=== PATIENT | male | born 1945 | race Caucasian/White ===

== ENCOUNTER 2018-08-13 20:05 | Inpatient (IN) | payer OTHER ==
[~2018-08-13] VITALS: Ht 180.3 cm; Wt 114.1 kg
[2018-08-13 20:08] VITALS: BP 144/82
[2018-08-13] MEDS ORDERED: METFORMIN HCL500 MG PO (20:15)
[2018-08-13] MEDS ORDERED: AMARYL4 MG PO (20:15)
[2018-08-13] MEDS ORDERED: COZAAR 25 MG TA25 M1 PO (20:15)
[2018-08-13] MEDS ORDERED: ASPIRIN325 PO (20:16)
[2018-08-13] MEDS ORDERED: HYDROCHLOROTHIA25 M2 PO (20:17)
[2018-08-13] MEDS ORDERED: COREG6.25 MG PO (20:18)
[2018-08-13] MEDS ORDERED: CENTRUM SILVER1 EAC2 PO (20:18)
[2018-08-13] MEDS ORDERED: MAXZIDE-25 MG1 EACH PO (20:22)
[2018-08-13] MEDS ORDERED: ZOCOR40 MG PO (20:23)
[2018-08-13 20:26] LABS: ABSOLUTE NEUTROPHILS 12.3 thou/uL (1.4-8.2); BASOPHILS 1.1 % (0.0-2.0); EOSINOPHILS 1.6 % (0.0-3.0); HEMATOCRIT 35.2 % (42.0-52.0); HEMOGLOBIN 12.4 gm/dL (14.0-18.0); LYMPHOCYTES 5.4 % (24.0-44.0); MCH 30.7 pg (26.0-34.0); MCHC 35.3 g/dL (28.0-37.0); MCV 86.9 fL (80.0-100.0); MONOCYTES 7.8 % (1.0-8.0); PLATELET COUNT 165 thou/uL (150-400); POLYS 84.1 % (36.0-66.0); RBC 4.05 mil/uL (4.50-6.00); RDW 13.4 % (10.5-14.5); WBC 14.6 thou/uL (4.0-11.0)
[2018-08-13 20:42] LABS: ANION GAP 12 mmol/L (7-16); BUN 15 mg/dL (7-18); CALCIUM 8.7 mg/dL (8.5-10.1); CHLORIDE 95 mmol/L (98-107); CO2 23 mmol/L (21-32); CREATININE 1.4 mg/dL (0.7-1.3); GLUCOSE 267 mg/dL (74-106); POTASSIUM 4.1 mmol/L (3.5-5.1); SODIUM 130 mmol/L (136-145)
[2018-08-13 20:46] LABS: ALBUMIN 3.7 g/dL (3.4-5.0); SGOT 26 U/L (15-37); SGPT 33 U/L (30-65); TOTAL BILIRUBIN 1.1 mg/dL (<0.1-1.0); TOTAL PROTEIN 7.3 g/dL (6.4-8.2); TROPONIN-I <0.06 ng/mL (<0.06)
[2018-08-13 21:10] LABS: URINE BILIRUBIN NEGATIVE (Negative); URINE BLOOD TRACE (Negative); URINE CLARITY CLEAR; URINE COLOR YELLOW; URINE GLUCOSE-RANDOM* TRACE (Negative); URINE KETONES TRACE (Negative); URINE LEUKOCYTES-REFLEX NEGATIVE (Negative); URINE NITRITE-REFLEX NEGATIVE (Negative); URINE PROTEIN (DIPSTICK) TRACE (Negative); URINE UROBILINOGEN 0.2 E.U./dl (0.2-1.0)
[2018-08-14 01:30] VITALS: BP 102/74
[2018-08-14 01:49] VITALS: BP 102/74
[2018-08-14 02:15] VITALS: BP 165/70
--- NOTE | 2018-08-14 04:30 | NUR ---
PT ADMISSION COMPLETED. CONSENTS SIGNED. ORDERS IMPLEMENTED. PT ALERT AND ORIENTED. FALL RISK PRECAUTIONS IN PLACE. IV DRESSING C/D/I, NO SIGNS OF INFILTRATRION. PT CALL LIGHT AND PERSONAL BELNONGS WITHIN REACH. WILL CONTINUE POC UNTIL EOS.
[2018-08-14 06:08] LABS: CALCIUM 8.2 mg/dL (8.5-10.1); CREATININE 1.3 mg/dL (0.7-1.3); MAGNESIUM 1.7 mg/dL (1.8-2.4); POTASSIUM 3.7 mmol/L (3.5-5.1)
[2018-08-14 07:15] VITALS: BP 156/59
--- NOTE | 2018-08-14 08:58 | NUR ---
ASSUMED CARE OF PT AT 0700. ASSESSMENT COMPLETED. A&O,X4. C/O WEAKNESS AND COUGH. DENIES PAIN AND N/V/D. QUESTIONED WHY HE WAS NOT RESTARTED ON HIS METFORMIN, PHYSICIAN NOTIFIED. INSTRUCTED TO HOLD FOR AM. STANDBY ASSIST TO BATHROOM. WILL CONTINUE TO MONITOR.
[2018-08-14 17:18] VITALS: BP 154/80
[2018-08-14 19:56] VITALS: BP 162/73
[2018-08-15 04:19] VITALS: BP 166/80
[2018-08-15 04:58] LABS: HEMATOCRIT 31.8 % (42.0-52.0); HEMOGLOBIN 11.3 gm/dL (14.0-18.0); MCH 30.6 pg (26.0-34.0); MCHC 35.4 g/dL (28.0-37.0); MCV 86.5 fL (80.0-100.0); RBC 3.68 mil/uL (4.50-6.00); RDW 13.5 % (10.5-14.5); WBC 8.7 thou/uL (4.0-11.0)
[2018-08-15 05:08] LABS: CALCIUM 8.5 mg/dL (8.5-10.1); CREATININE 1.2 mg/dL (0.7-1.3); MAGNESIUM 1.6 mg/dL (1.8-2.4); POTASSIUM 3.7 mmol/L (3.5-5.1)
--- NOTE | 2018-08-15 06:40 | NUR ---
A/O, afebrile. BP elevated this AM , denied headache. BP medication given. Patient refused insulin. The staff called the WOODYARD OPERATOR, explained to the patient the reason why he could not have metformin.
--- NOTE | 2018-08-15 08:11 | EKG ---
[address] [address] ELECTROCARDIOGRAM REPORT Name: KARINA LOPEZ Room #: 423-1 ADM IN M.R.#: [id number] ������������������ Admission: 08/14/18 ������������������ Attend Phys: Yuni Amador MD Discharge: ������������������ Date of : 47 Report #: [id number] ����������������������������������������������������������������� [id number] THIS REPORT FOR: //name// [facility] ED Test Date: 2018-08-13 Test Time: 20:11:44 Pat Name: KARINA LOPEZ Department: Room: [facility] Gender: M Pt Skilled: SHAYLEE : 1945 Requested By: Brendan Justin Order Number: [id number] MD: Felipe Flannery Measurements Intervals [place] Rate: 109 P: MS: QRS: -5 QRSD: 90 T: 44 QT: 322 QTc: 434 Interpretive Statements Sinus tachycardia Compared to ECG 03/02/2003 15:35:08 No significant change was found Electronically Signed On 08-15-2018 8:11:32 CDT by Felipe Flannery [email or web address] ��������������������������������������������� <ELECTRONICALLY SIGNED> ���������������������������������������� By: Felipe Flannery MD, [facility] ��������������������������������������������� 08/15/18810 10 10 Felipe Flannery MD, FACC /EPI
[2018-08-15 08:33] VITALS: BP 131/62
[2018-08-15 16:36] VITALS: BP 187/83
--- NOTE | 2018-08-15 17:01 | NUR ---
PT ADMITTED RELATED TO WEAKNESS, HYPOMAGNESIUM. CM REVVIEWED CHART AND SPOKE WITH CARE TEAM. CM MET WITH PT AND SPOUSE AT BEDSIDE THIS DAY. PT IS A&0 X4. CM ROLE INTRODUCED. PT INDICTED HE LIVES IN A HOUSE WITH HIS WITH NO STEPS. 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 PT INDICATED HE PLANS TO RETURN HOME WITH NO NEEDS ONCE MEDICALLY STABLE. CM TO FOLLOW INDICATED WITH DC PLANNING.
--- NOTE | 2018-08-15 18:30 | NUR ---
PT ASSESSED THIS AM. BLOOD SUGARS HIGH AND EXPLAINED TO PT IMPORTANCE OF TAKING INSULING SLIDING SCALE AND HE AGREED TO TAKE IT. EATING WELL AND TAKING SWEETS BROUGHT BY FAMILY. AMBULATED STEADY W/ THERAPY AND THEY RELEASED HIM TO BE UP AD REYES. MORE CONJESTED COUGH THIS AFTERNOON.
[2018-08-15 20:12] VITALS: BP 186/82
--- NOTE | 2018-08-16 01:48 | NUR ---
Assumed care of pt at 1900. Pt alert and oriented x4. No c/o pain. Pt states he does not measure his blood pressure at home and needs to make some lifestyle changes (diet & exercise) to get his blood sugar under control. Blood sugars in the 300s. Sliding scale insulin administered. Call light within reach. Will continue to monitor.
[2018-08-16 04:52] VITALS: BP 197/95
[2018-08-16 08:00] VITALS: BP 171/83
[2018-08-16 08:09] LABS: HEMATOCRIT 31.3 % (42.0-52.0); HEMOGLOBIN 10.9 gm/dL (14.0-18.0); MCH 30.6 pg (26.0-34.0); MCHC 34.8 g/dL (28.0-37.0); MCV 87.9 fL (80.0-100.0); RBC 3.56 mil/uL (4.50-6.00); RDW 13.2 % (10.5-14.5)
[2018-08-16 08:28] LABS: CALCIUM 8.7 mg/dL (8.5-10.1); CREATININE 1.1 mg/dL (0.7-1.3); POTASSIUM 3.8 mmol/L (3.5-5.1)
[2018-08-16] MEDS ORDERED: AZITHROMYCIN 2250 MG PO (09:45)
[2018-08-16 10:30] VITALS: BP 171/83
--- NOTE | 2018-08-16 11:46 | NUR ---
Assumed pt care at 7am.Pt in bed resting without c/o.Assessment completed.vss. Pt tolerated meds and diet.Dr Peralta here,dc order noted.Dc summary compiled and reviewed with.Pt will be dc home at noom with .
[2018-08-16 12:06] VITALS: BP 171/83
[2018-08-18 00:08] LABS: ADENOVIRUS Negative (Negative); INFLUENZA A Negative (Negative); INFLUENZA B Negative (Negative); METAPNEUMOVIRUS Negative (Negative); PARAINFLUENZA 1 Negative (Negative); PARAINFLUENZA 2 Negative (Negative); PARAINFLUENZA 3 Negative (Negative); RHINOVIRUS Negative (Negative); RSV A Negative (Negative); RSV B Positive (Negative)
== END 2018-08-16 12:16 | disposition home or self-care (01) | DRG 871 ==
LOC: ER 20:05 → 4E 08-14 00:05 → EROBS 08-14 00:05 → 4E 08-14 01:50 → ENTRNSPT 08-16 11:53 → EDTRNSPTSTS 08-16 11:56 → 4E 08-16 12:16
PROVIDERS: Emergency Medicine; Internal Medicine; Nurse Practitioner Acute Care; ADMIT Internal Medicine
DX: A41.9 Sepsis, unspecified organism (principal); N17.0 Acute kidney failure with tubular necrosis; E87.1 Hypo-osmolality and hyponatremia; J20.9 Acute bronchitis, unspecified; E83.42 Hypomagnesemia; J06.9 Acute upper respiratory infection, unspecified; N18.9 Chronic kidney disease, unspecified; I12.9 Hypertensive chronic kidney disease with stage 1 through stage 4 chronic kidney disease, or unspecified chronic kidney disease; E78.5 Hyperlipidemia, unspecified; E66.01 Morbid (severe) obesity due to excess calories; E86.0 Dehydration; E11.22 Type 2 diabetes mellitus with diabetic chronic kidney disease; E11.65 Type 2 diabetes mellitus with hyperglycemia; D64.9 Anemia, unspecified; Z79.84 Long term (current) use of oral hypoglycemic drugs; Z79.899 Other long term (current) drug therapy; Z68.35 Body mass index [BMI] 35.0-35.9, adult; Z79.82 Long term (current) use of aspirin
CPT/HCPCS: 10084

== ENCOUNTER 2019-07-20 11:40 | Emergency (ER) | payer OTHER ==
[~2019-07-20] VITALS: Ht 180.3 cm; Wt 111.1 kg
[~2019-07-20 11:40] MED LIST: AMARYL4 MG PO; ASPIRIN325 PO; AZITHROMYCIN 2250 MG PO; CENTRUM SILVER1 EAC2 PO; COREG6.25 MG PO; COZAAR 25 MG TA25 M1 PO; HYDROCHLOROTHIA25 M2 PO; MAXZIDE-25 MG1 EACH PO; METFORMIN HCL500 MG PO; ZOCOR40 MG PO
[2019-07-20 13:25] LABS: ABSOLUTE NEUTROPHILS 5.9 thou/uL (1.4-8.2); BASOPHILS 0.6 % (0.0-2.0); EOSINOPHILS 4.7 % (0.0-3.0); LYMPHOCYTES 19.4 % (24.0-44.0); MCH 29.9 pg (26.0-34.0); MCHC 33.3 g/dL (28.0-37.0); MCV 89.8 fL (80.0-100.0); MONOCYTES 8.9 % (1.0-8.0); PLATELET COUNT 209 thou/uL (150-400); POLYS 66.4 % (36.0-66.0); RBC 4.01 mil/uL (4.50-6.00); RDW 13.4 % (10.5-14.5); WBC 8.9 thou/uL (4.0-11.0)
[2019-07-20 13:41] LABS: ANION GAP 10 mmol/L (7-16); BUN 16 mg/dL (7-18); CALCIUM 9.4 mg/dL (8.5-10.1); CHLORIDE 100 mmol/L (98-107); CO2 28 mmol/L (21-32); CREATININE 1.3 mg/dL (0.7-1.3); GLUCOSE 192 mg/dL (74-106); POTASSIUM 3.6 mmol/L (3.5-5.1); SODIUM 138 mmol/L (136-145)
[2019-07-20 13:53] LABS: ALBUMIN 3.9 g/dL (3.4-5.0); SGOT 22 U/L (15-37); SGPT 29 U/L (30-65); TOTAL BILIRUBIN 0.9 mg/dL (<0.1-1.0); TOTAL PROTEIN 7.4 g/dL (6.4-8.2); TROPONIN-I <0.06 ng/mL (<0.06)
[2019-07-20 15:09] VITALS: BP 133/80
--- NOTE | 2019-07-20 16:18 | EKG ---
[facility] [place] [address] ELECTROCARDIOGRAM REPORT Name: KARINA LOPEZ Room #: DEP [facility]#: [id number] Admission: 07/20/19 Attend Phys: Discharge: 07/20/19 Date of : 47 Report #: [id number] THIS REPORT FOR: cc: Merrill Lozano MD, Steven E. MD Couchonnal,Amador Bacon MD ~ THIS REPORT FOR: //name// [facility] ED Test Date: 2019-07-20 Test Time: 11:46:58 Pat Name: KARINA LOPEZ Department: Room: Gender: Liquor Department Manager: : 1945 Requested By: Gerri Finnegan Order Number: [id number] MD: Amador Pierre Measurements Intervals [place] Rate: 71 P: 31 MT: 143 QRS: -16 QRSD: 100 T: 21 QT: 395 QTc: 430 Interpretive Statements Sinus rhythm Borderline left axis deviation Compared to ECG 08/13/2018 20:11:44 Sinus tachycardia no longer present Electronically Signed On 07-20-2019 16:17:11 REGULATORY SUBMISSIONS SPECIALIST by Amador Pierre [email or web address] <ELECTRONICALLY SIGNED> By: Amador Pierre MD 07/20/19 1617 1146 1146 Aamdor Pierre MD /EPI
== END 2019-07-20 15:09 | disposition home or self-care (01) ==
LOC: ER 11:40
PROVIDERS: Physician Assistant
DX: R00.2 Palpitations (principal); R53.1 Weakness; I12.9 Hypertensive chronic kidney disease with stage 1 through stage 4 chronic kidney disease, or unspecified chronic kidney disease; E11.22 Type 2 diabetes mellitus with diabetic chronic kidney disease; E78.5 Hyperlipidemia, unspecified; N18.9 Chronic kidney disease, unspecified; Z90.49 Acquired absence of other specified parts of digestive tract

== ENCOUNTER 2020-08-10 14:42 | Emergency (ER) | payer OTHER ==
[~2020-08-10] VITALS: Ht 180.3 cm; Wt 109.8 kg
[2020-08-10 15:14] LABS: ABSOLUTE NEUTROPHILS 5.7 thou/uL (1.4-8.2); BASOPHILS 0.7 % (0.0-2.0); EOSINOPHILS 5.3 % (0.0-3.0); HEMATOCRIT 39.1 % (42.0-52.0); LYMPHOCYTES 21.7 % (24.0-44.0); MCH 30.1 pg (26.0-34.0); MCHC 33.3 g/dL (28.0-37.0); MCV 90.4 fL (80.0-100.0); PLATELET COUNT 201 thou/uL (150-400); POLYS 65.3 % (36.0-66.0); RBC 4.32 mil/uL (4.50-6.00); RDW 13.3 % (10.5-14.5); WBC 8.7 thou/uL (4.0-11.0)
[2020-08-10 15:19] LABS: ANION GAP 10 mmol/L (7-16); BUN 19 mg/dL (7-18); CALCIUM 9.4 mg/dL (8.5-10.1); CHLORIDE 98 mmol/L (98-107); CO2 26 mmol/L (21-32); CREATININE 1.4 mg/dL (0.7-1.3); GLUCOSE 311 mg/dL (74-106); POTASSIUM 4.5 mmol/L (3.5-5.1); SODIUM 134 mmol/L (136-145)
[2020-08-10 15:28] LABS: ALBUMIN 3.8 g/dL (3.4-5.0); SGOT 21 U/L (15-37); SGPT 32 U/L (16-63); TOTAL BILIRUBIN 0.7 mg/dL (0.2-1.0); TOTAL PROTEIN 7.4 g/dL (6.4-8.2); TROPONIN-I <0.06 ng/mL (<0.06)
[2020-08-10 15:43] LABS: URINE BILIRUBIN NEGATIVE (Negative); URINE BLOOD NEGATIVE (Negative); URINE CLARITY CLEAR; URINE COLOR YELLOW; URINE GLUCOSE-RANDOM* 1+ (Negative); URINE KETONES NEGATIVE (Negative); URINE LEUKOCYTES-REFLEX NEGATIVE (Negative); URINE NITRITE-REFLEX NEGATIVE (Negative); URINE PROTEIN (DIPSTICK) NEGATIVE (Negative); URINE SPECIFIC GRAVITY 1.015 (1.005-1.035); URINE UROBILINOGEN 0.2 E.U./dl (0.2-1.0)
[2020-08-10 16:38] VITALS: BP 134/72
--- NOTE | 2020-08-12 07:37 | EKG ---
[address] [address] [place] [address] ELECTROCARDIOGRAM REPORT Name: KARINA LOPEZ [id number] Admission: 08/10/20 Attend Phys: Discharge: 08/10/20 Date of : 47 Report #: [id number] [facility] ED Test Date: 2020-08-10 Test Time: 15:49:39 Pat Name: KARINA LOPEZ Department: Room: Gender: M [employer] Cord: : 1945 Requested By: Marcos Valiente Order Number: [id number] MD: Jose Moody Measurements Intervals [place] Rate: 67 P: 34 AK: 143 QRS: -17 QRSD: 102 T: 14 QT: 400 QTc: 423 Interpretive Statements Sinus rhythm Borderline left axis deviation Abnormal R-wave progression, early transition Compared to ECG 07/20/2019 11:46:58 No significant changes Electronically Signed On 08-12-2020 7:36:59 CODE MACHINE OPERATOR by Jose Moody [email or web address] <ELECTRONICALLY SIGNED> By: Jose Moody MD, [facility] 08/12/20 0736 1549 1549 Jose Moody MD, FACC /EPI
== END 2020-08-10 16:38 | disposition home or self-care (01) ==
LOC: ER 14:42
PROVIDERS: Emergency Medicine
DX: R42 Dizziness and giddiness (principal); I10 Essential (primary) hypertension; E11.9 Type 2 diabetes mellitus without complications; Z90.89 Acquired absence of other organs; Z79.1 Long term (current) use of non-steroidal anti-inflammatories (NSAID); Z79.82 Long term (current) use of aspirin; Z79.899 Other long term (current) drug therapy

== ENCOUNTER 2021-04-22 03:01 | Inpatient (IN) | payer OTHER ==
[~2021-04-22] VITALS: Ht 180.3 cm; Wt 113.8 kg
[2021-04-22] VITALS (10 sets, daily range): BP systolic 140–195; BP diastolic 64–104
--- NOTE | ~2021-04-22 | EMS ---
[facility] [address] [place] [address] EMS Patient Care Report Name: KARINA LOPEZ Room #: 354-P ADM IN M.R.#: [id number] Admission: 04/22/21 Attend Phys: Az Peralta MD Discharge: Date of : 47 Report #: [id number] THIS REPORT FOR: //name// Report Transmitted: 04/24/2021 10:48 EMS Care Summary [place], [place]/[facility] Incident [id number] @ 04/22/2021 01:58 Incident Location [facility] [address] [place] [address] Patient KARINA LOPEZ Male, 75 Years 1945 Patient Address [address] [place] [address] Patient History Hypertension (HTN),Type 2 Diabetes, Patient Allergies No known allergies, Chief Complaint GEN WEAKNESS Disposition Transported No Lights/[place] Dispatch Reason Falls Transported To [facility] Narrative [facility] 42 WAS DISPATCHED TO A 75 YEAR OLD MALE ON A FALL. EMS DONNED GLOVES AND FACE MASKS AND MADE PT CONTACT WITH PD AND FAMILY. PT CONTACT WAS MADE IN THE PT'S BEDROOM. PT WAS SITTING UP ON THE GROUND. PT WAS ALERT AND ORIENTATED TIMES 4. PT DENIED ANY INJURIES. PT WAS ASSISTED INTO A STANDING POSITION THEN ONTO THE BED IN A SITTING POSITION. PT STATED HE HAS HAD GEN WEAKNESS, LIGHTHEADEDNESS, AND DIZZINESS FOR THE PAST 2-3 WEEKS. EMS OBTAINED A SET OF [facility] [address] [place] [address] EMS Patient Care Report Name: KARINA LOPEZ Room #: 354-P ADM IN M.R.#: [id number] Admission: 04/22/21 Attend Phys: Az Peralta MD Discharge: Date of : 47 Report #: [id number] VITALS AND A BGL. PT WAS HYPERTENSIVE. NEG STROKE ASSESSMENT. PT WISHED TO BE TRANSPORTED TO [facility] FOR CONTINUATION OF CARE. PT WAS ASSISTED ONTO THE COT INTO A POSITION OF COMFORT AND WAS SECURED VIA 2 SEAT BELTS. PT WAS TRANSPORTED TO AND WAS LOADED INTO THE AMBULANCE. EMS OBTAINED IV ACCESS. PT WAS TRANSPORTED TO [facility] PER PROTOCOL WITH NO CHANGES EN ROUTE. PT WAS TAKEN TO ER ROOM 8 WHERE TRANSPORT REPORT WAS GIVEN TO THE RECIEVING STAFF. ER NURSE SIGNED FOR TRANSFER OF CARE AND EMS WENT BACK INTO SERVICE. Initial Vitals @02:36P: 74,BP: 191/89,SpO2: 95, @02:29P: 83,SpO2: 94, @02:46P: 75,R: 18,BP: 187/80,Pain: 0/10,GCS: 15,SpO2: 94,Revised Trauma: 12, @02:18P: 83,R: 18,BP: 186/85,Pain: 0/10,GCS: 15,Glucose: 80,SpO2: 98,Revised Trauma: 12, Assessments @02:14MENTAL:Event Oriented,Time Oriented,Person Oriented,Place Oriented,SKIN:HEENT:Head/Face: No Abnormalities,Eyes: No Abnormalities,Neck/Airway: No Abnormalities,LUNG SOUNDS:General: No Abnormalities,Left Upper: No Abnormalities,Right Upper: No Abnormalities,Left Lower: No Abnormalities,Right Lower: No Abnormalities,ABDOMEN:General: No Abnormalities,Left Upper: No Abnormalities,Right Upper: No Abnormalities,Left Lower: No Abnormalities,Right Lower: No Abnormalities,PELVIS//GI:No Abnormalities,EXTREMITIES:Right Arm: Weakness,Left Leg: Weakness,Right Leg: Weakness,Left Arm: Weakness,PULSE:Radial: 2+ Normal,NEURO:No Abnormalities,@02:52 Impression Generalized Weakness Procedures @02:14 ALS Assessment Response: UnchangedSucceeded Timeline 01:56,Call Received :56,Dispatch Notified 01:58,Dispatched 02:00,En Route 02:12,On Scene 02:14,At Patient 02:14,ALS Assessment,Response: UnchangedSucceeded, 02:18,BP: 186/85 M,PULSE: 83,RR: 18 R,SPO2: 98 Ox,ETCO2: ,B,PAIN: 0,GCS: 15, 02:29,BP: / M,PULSE: 83,RR: R,SPO2: 94 Ox,ETCO2: ,BG: ,PAIN: ,GCS: , [facility] [address] [place] [address] EMS Patient Care Report Name: KARINA LOPEZ Ophelia Room #: 354-P [facility] IN M.R.#: [id number] Admission: 04/22/21 Attend Phys: Az Peralta MD Discharge: Date of : 47 Report #: [id number] 02:36,BP: 191/89 M,PULSE: 74,RR: R,SPO2: 95 Ox,ETCO2: ,BG: ,PAIN: ,GCS: , 02:44,Depart Scene 02:46,BP: 187/80 M,PULSE: 75,RR: 18 R,SPO2: 94 Ox,ETCO2: ,BG: ,PAIN: 0,GCS: 15, 02:56,At Destination 03:10,Call Closed Disclaimer v1.1 Copyright 2020 [employer] This EMS Care Summary contains data elements from the applicable legal record (which may be displayed differently). It is designed to provide pertinent information for the following purposes: continuity of care, clinical quality, and state data reporting. The complete legal record is available to ED staff and administrators of the receiving hospital in ES's Patient Tracker. All data is provided "as is."
--- NOTE | ~2021-04-22 | HC ---
[facility] [place] [address] CONSULTATION Name: KARINA LOPEZ Room #: 361-P ADM IN M.R.#: [id number] Admission: 04/22/21 Attend Phys: Az Peralta MD Discharge: Date of : 47 Report #: [id number] THIS REPORT FOR: cc: Marcos Linares David J. DO Khosla, Parveen K. MD ~ DATE OF SERVICE: 04/22/2021 HISTORY OF PRESENT ILLNESS: A 75-year-old male patient with somewhat of an unstructured history. The records indicate that he was admitted with dizziness. He said he is not having much trouble with dizziness. He said he has generalized weakness. I reviewed the patient's records in the computer and that indicated that he was admitted with the same symptom in 2019. He does not tell me when did he become better. This time he said he became worse in the last few weeks and had a ground level fall for which he did not hit his head. He said he had multiple MRIs in the last few weeks. He thought it was ____. I logged into his records, I cannot find any records of MRIs here. REVIEW OF SYSTEMS: Indicate that he sees a audiovisual equipment operator, he has a history of hypertension. He was admitted with dehydration. He has a history of diabetes. At one time, his magnesium level was so low, one time he said he came with some pedal edema. He also had an upper respiratory tract infection at one time. This was his relevant 14-point review of system. PAST MEDICAL HISTORY: Negative for stroke. FAMILY HISTORY: Unremarkable. SOCIAL HISTORY: Does not smoke. PHYSICAL EXAMINATION: GENERAL: He is alert. He is responsive. He can follow simple commands. VITAL SIGNS: Blood pressure is 140/74, respirations 18, pulse is 70, temperature is 98.5. NEUROLOGIC: Cranial nerve examination appear unremarkable, actually looked pretty much unremarkable objectively. His reflexes are present. He did pretty well with the position sense. He did normally on otahsd-rl-bwgv and jebk-hw-jlog. He had a difficult time understanding the instructions, but appeared to be doing alright when he can follow. Now, he has pulses in the lower extremities. A well-developed individual. CARDIAC: Appear unremarkable. LUNGS: No respiratory difficulty was noticed. EXTREMITIES: I did not see any edema. LABORATORY DATA: White count is 4.8 and GFR is 54. [address] [address] CONSULTATION Name: KARINA LOPEZ Room #: 361-P ADM IN .R.#: [id number] Admission: 04/22/21 Attend Phys: Az Peralta MD Discharge: Date of : 47 Report #: [id number] IMPRESSION: Pretty difficult to form in this patient. He was admitted with the same kind of symptom in 2019 and he said he is having symptoms at least for a few weeks and maybe longer. RECOMMENDATION: I will try to talk to him to see where his MRIs were done. We will do it tomorrow. ____ for myasthenia with MRI does not show any abnormality. Thank you very much for this referral and if you have any questions, please feel free to contact me. By: [id number] Maurisio Reagan MD /nt
[2021-04-22 03:38] LABS: ABSOLUTE NEUTROPHILS 3.3 thou/uL (1.4-8.2); BASOPHILS 0.7 % (0.0-2.0); EOSINOPHILS 2.6 % (0.0-3.0); HEMATOCRIT 32.2 % (42.0-52.0); HEMOGLOBIN 10.8 gm/dL (14.0-18.0); LYMPHOCYTES 11.2 % (24.0-44.0); MCH 30.3 pg (26.0-34.0); MCHC 33.7 g/dL (28.0-37.0); MONOCYTES 17.5 % (1.0-8.0); PLATELET COUNT 137 thou/uL (150-400); RBC 3.58 mil/uL (4.50-6.00); RDW 14.4 % (10.5-14.5); WBC 4.8 thou/uL (4.0-11.0)
[2021-04-22 03:43] LABS: CALCIUM 8.6 mg/dL (8.5-10.1); CREATININE 1.3 mg/dL (0.7-1.3); POTASSIUM 3.9 mmol/L (3.5-5.1)
[2021-04-22] MEDS ORDERED: HYDRALAZINE 2525 MG PO (04:41)
[2021-04-22] MEDS ORDERED: LOSARTAN POTAS100 MG PO (04:42)
[2021-04-22] MEDS ORDERED: SPIRONOLACTONE25 MG PO (04:43)
[2021-04-22] MEDS ORDERED: ROSUVASTATIN CAL5 MG PO (04:43)
[2021-04-22] MEDS ORDERED: CARVEDILOL25 MG PO (04:45)
[2021-04-22 05:10] LABS: URINE BILIRUBIN NEGATIVE (Negative); URINE BLOOD NEGATIVE (Negative); URINE CLARITY CLEAR; URINE COLOR YELLOW; URINE GLUCOSE-RANDOM* NEGATIVE (Negative); URINE KETONES TRACE (Negative); URINE LEUKOCYTES-REFLEX NEGATIVE (Negative); URINE NITRITE-REFLEX NEGATIVE (Negative); URINE PROTEIN (DIPSTICK) 1+ (Negative); URINE SPECIFIC GRAVITY >= 1.030 (1.005-1.035); URINE UROBILINOGEN 0.2 E.U./dl (0.2-1.0)
[2021-04-22 05:34] LABS: BACTERIA-REFLEX 1-9 Few /HPF (None Seen); CALCIUM OXALATE 0-3 Few /LPF (None Seen); CASTS None Seen /LPF (None Seen); MUCUS 0-3 Light strn/LPF (None Seen); SQUAMOUS 0-3 Few /LPF (0-3); URINE RBC 1-2 Rare /HPF (NONE SEEN); URINE WBC-REFLEX 0-5 Rare /HPF (0-5)
--- NOTE | 2021-04-22 08:01 | EKG ---
[address] [address] ELECTROCARDIOGRAM REPORT Name: KARINA LOPEZ Room #: 170-8 ADM IN M.R.#: [id number] Admission: 04/22/21 Attend Phys: Az Peralta MD Discharge: Date of : 47 Report #: [id number] [facility] ED Test Date: 2021-04-22 Test Time: 03:17:22 Pat Name: KARINA LOPEZ Department: Room: 170 Gender: M Laborer Pipelines: namita : 1945 Requested By: Stan Hayes Order Number: [id number] MD: Jose Moody Measurements Intervals [place] Rate: 74 P: 45 UT: 154 QRS: -21 QRSD: 96 T: 55 QT: 385 QTc: 428 Interpretive Statements Sinus rhythm Borderline left axis deviation Compared to ECG 08/10/2020 15:49:39 No significant changes Electronically Signed On 04-22-2021 8:01:05 TIMBER HARVESTER OPERATOR by Jose Moody [email or web address] <ELECTRONICALLY SIGNED> By: Jose Moody MD, [facility] 04/22/21800 0317 6 Jose Moody MD, FACC /EPI
[2021-04-22] MEDS ORDERED: GLIMEPIRIDE4 MG PO (09:02)
[2021-04-22 12:03] LABS: FOLIC ACID 14.8 ng/mL (8.6-58.9)
--- NOTE | 2021-04-22 14:59 | NUR ---
INITIAL ASSESSMENT: SMITH reviewed chart and spoke with nursing. Pt was admitted from home due to weakness and falls. Neuro consulted. SW met with pt briefly at bedside. Introduced role of SW. Pt is alert/orientated x 4. Pt lives at home with his . Prior to admission, pt was independent with ADLs. Pt has a cane and walker to use at home if needed. There is 1 step to enter their home. No steps inside. Therapy has been ordered to evaluate pt for discharge needs. SMITH discussed case with 5N clinical rn liaison regarding possible 5N consult pending therapy evals. SMITH is following to assist as needed with discharge planning.
--- NOTE | 2021-04-22 18:20 | NUR ---
PATIENT ADMIT TO UNIT AT 1000 FROM ER. A/O X4. VSS. STILL FEELS DIZZY. NO N/V. AMBULATED IN ROOM WITH WALKER. WILL KEEP MONITOR.
[2021-04-23] VITALS (7 sets, daily range): BP systolic 134–190; BP diastolic 68–96
--- NOTE | 2021-04-23 04:49 | NUR ---
Had a hard time falling asleep then he finally did and got some per pt. Denies any pain. No c/o being dizzy when he got up to use bathroom. Ambulated to bathroom using walker. Hydralazine prn given for elevated BP with good results. No bm this shift , still needs sample for OB. Bed alarm on for safety. Making some progress towards care plan goals.
[2021-04-23 05:34] LABS: ABSOLUTE NEUTROPHILS 3.5 thou/uL (1.4-8.2); BASOPHILS 0.7 % (0.0-2.0); HEMATOCRIT 32.3 % (42.0-52.0); HEMOGLOBIN 11.1 gm/dL (14.0-18.0); MCH 30.6 pg (26.0-34.0); MCHC 34.5 g/dL (28.0-37.0); MCV 88.8 fL (80.0-100.0); MONOCYTES 15.5 % (1.0-8.0); PLATELET COUNT 129 thou/uL (150-400); POLYS 62.8 % (36.0-66.0); RBC 3.63 mil/uL (4.50-6.00); RDW 14.4 % (10.5-14.5); WBC 5.5 thou/uL (4.0-11.0)
[2021-04-23 06:06] LABS: CALCIUM 8.6 mg/dL (8.5-10.1); CREATININE 1.1 mg/dL (0.7-1.3); MAGNESIUM 1.6 mg/dL (1.8-2.4); POTASSIUM 4.2 mmol/L (3.5-5.1)
--- NOTE | 2021-04-23 11:54 | NUR ---
SW reviewed chart and spoke with nursing and attending physician. Neuro consulted. SW discussed case with 5N rehabilitation program manager regarding consult. 5N consult ordered. SMITH notified that pt had COVID test completed today, which came back positive. Pt to be moved into an Enhanced Isolation room. Pt did not have a COVID test prior to coming to 3W from the ER. SW notified 5N rehabilitation program manager of positive COVID test. SMITH is following to assist as needed with discharge planning.
--- NOTE | 2021-04-23 19:47 | NUR ---
RN ASSUMED PT'S CARE AT 0700-1900PM, PT IS A&OX4, PT IS ON ROOM AIR, PT'S DIZZY AND WEAKNESS HAVE IMPROVED, BUT PT IS COVID POSITIVE FROM TEST TODAY, PTDENIES PAIN AND SOB AT DAY SHIFT.
[2021-04-24 04:45] VITALS: BP 172/71
--- NOTE | 2021-04-24 04:53 | NUR ---
PT ALERT & ORIENTED X 3 WITH PERIODS OF CONFUSION OVERNIGHT. NO C/O OF DIZZINESS OR WEAKNESS. CURRENTLY ON RA AND O2 SATS 95-97%. NO C/O OF PAIN OVERNIGHT. VSS. PT UP TO BSC WITH SBA. WILL CONTINUE TO MONITOR.
[2021-04-24 05:51] VITALS: BP 177/85
[2021-04-24 06:54] LABS: HEMATOCRIT 33.9 % (42.0-52.0); HEMOGLOBIN 11.5 gm/dL (14.0-18.0); MCH 30.3 pg (26.0-34.0); MCV 89.1 fL (80.0-100.0); RBC 3.81 mil/uL (4.50-6.00); RDW 14.1 % (10.5-14.5)
[2021-04-24 07:16] LABS: CALCIUM 8.8 mg/dL (8.5-10.1); POTASSIUM 4.5 mmol/L (3.5-5.1)
[2021-04-24 07:18] VITALS: BP 136/72
[2021-04-24 11:39] VITALS: BP 151/72
--- NOTE | 2021-04-24 12:47 | NUR ---
SW reviewed chart and spoke with nursing and attending physician. Pt remains in Enhanced Isolation due to COVID. Pt is afebrile and not requiriing O2. Pt is progressing towards goals for discharge. Pt's was admitted to [facility] due to COVID yesterday. SW spoke with pt's via phone to discuss discharge plan. Pt's states that there is not someone available that could stay with pt until she is discharged home. Pt's states she was told that home health would be taking care of him. SW explained HH services and that it is not 24 hour care. Awaiting therapy notes from today to determine if pt is able to go home with HH or may possibly need short term SNF placement. SW to follow up with pt's and attending physician after therapy has seen pt today. SW is following to assist as needed with discharge planning.
--- NOTE | 2021-04-24 13:27 | NUR ---
Triggered for excessive BMI 48, extreme class II obesity. Pt admitted with covid, weakness. Noted with good intakes on 1800 ADA diet, no c/o chewing swallowing difficulties at this time. Unable to get pt on phone, still under isolation precautions r/t covid. F/u for nutrition education desires.
[2021-04-24 16:13] VITALS: BP 146/64
[2021-04-24 19:27] VITALS: BP 128/59
--- NOTE | 2021-04-24 19:30 | NUR ---
RN ASSUMED PT'S CARE AT 0700-1900PM, PT IS A&OX3( PERSON A, TIME AND PLACE), RN HAS CALLED DR TO REPORT PT'S FEVER AND CONFUSION AT TIME, NEW ORDER RECEOVED, PT IS CONTINING COVID ISOLATION, RN HAS REPORTED TO NEXT SHIFT TO KEEP EYE ON PT.
[2021-04-25 04:46] VITALS: BP 152/60
[2021-04-25 06:28] LABS: URINE BILIRUBIN NEGATIVE (Negative); URINE BLOOD NEGATIVE (Negative); URINE CLARITY CLEAR; URINE COLOR YELLOW; URINE GLUCOSE-RANDOM* NEGATIVE (Negative); URINE KETONES TRACE (Negative); URINE LEUKOCYTES-REFLEX NEGATIVE (Negative); URINE NITRITE-REFLEX NEGATIVE (Negative); URINE PROTEIN (DIPSTICK) 1+ (Negative); URINE UROBILINOGEN 0.2 E.U./dl (0.2-1.0)
[2021-04-25 06:42] LABS: CASTS None Seen /LPF (None Seen); MUCUS 0-3 Light strn/LPF (None Seen); SQUAMOUS 0-3 Few /LPF (0-3)
[2021-04-25 06:43] LABS: BACTERIA-REFLEX None Seen /HPF (None Seen); CRYSTALS None Seen /LPF (None Seen); URINE RBC None Seen /HPF (NONE SEEN); URINE WBC-REFLEX None Seen /HPF (0-5)
[2021-04-25 06:44] LABS: HEMATOCRIT 34.9 % (42.0-52.0); HEMOGLOBIN 11.8 gm/dL (14.0-18.0); MCH 30.2 pg (26.0-34.0); MCHC 33.8 g/dL (28.0-37.0); MCV 89.4 fL (80.0-100.0); RBC 3.91 mil/uL (4.50-6.00); RDW 13.9 % (10.5-14.5); WBC 5.1 thou/uL (4.0-11.0)
--- NOTE | 2021-04-25 06:47 | NUR ---
PROGRESS PT ALERT AND ORIENTED BUT VERY IMPULSIVE. GETTING OOB UNASSISTED BUT VERY UNSTEADY. UP WITH GB WALKER AND ONE FOR SAFETY. VSS, AFEBRILE THIS SHIFT IV TO LF SL FLUSHES WITHOUT DIFFICULTY. DENIES PAIN. ON ROOM AIR VOIDING QS, UA SENT TO LAB ORDERED. LUNGS CLEAR TELEMETRY INTACT READING SR.
[2021-04-25 07:44] VITALS: BP 155/68
[2021-04-25 07:46] LABS: CREATININE 1.1 mg/dL (0.7-1.3); MAGNESIUM 1.6 mg/dL (1.8-2.4); POTASSIUM 4.8 mmol/L (3.5-5.1)
[2021-04-25 11:22] VITALS: BP 153/67
--- NOTE | 2021-04-25 11:35 | NUR ---
SW reviewed chart and spoke with nursing and attending physician. Pt remains in Enhanced Isolation due to COVID. Pt had fever last evening. Pt is on room air. PT worked with pt this morning and recommend post-acute care or home with 24 hour care. Pt's to remain in the hospital for several more days. OT to re-evaluate pt and 5N to re-consult as well to see if there have been any changes in his funtional status that may qualify him for admission to . SW discussed with 5N VICE PRESIDENT DIVERSITY. SW is following to assist as needed with discharge planning.
--- NOTE | 2021-04-25 13:03 | NUR ---
PT FELL WHILE IN MRI TODAY. PER J2EE APPLICATION DEVELOPER MARGARET, PT WAS SITTING ON MRI BED WAITING FOR HER TO BRING WC NEXT TO BED FOR TRANSFER. PT APPEARED TO TRY ADJUSTING HIMSELF WHILE SITTING ON MRI TABLE AND MISSED THE SIDE OF THE TABLE WITH HIS HAND AND FELL OFF TABLE. WHEN ASKING PT HOW IT HAPPENED PT STATES HE HIT HIS RIGHT SIDE, SHOUDLER AND R SIDE OF HEAD. NO CONTUSIONS OR INJURIES NOTED UPON ASSESSMENT PER THIS RN AND DR WRIGHT. FULL ROM NOTED TO R ARM. NO LOC. PT RETURNED TO FLOOR WITH NO INJURIES. NO ORDERS RECEIVED BY DR WRIGHT AT TIME OF ASSESSMENT. PRIMARY RN, CONRADO, UPDATED.
[2021-04-25 14:00] VITALS: BP 136/71
[2021-04-25 15:33] VITALS: BP 136/71
[2021-04-25] MEDS ORDERED: ZINC SULFATE50 MG PO (15:52)
[2021-04-25] MEDS ORDERED: VITAMIN B-12500 MCG PO (15:52)
[2021-04-25] MEDS ORDERED: FOLIC ACID1 MG PO (15:52)
[2021-04-25] MEDS ORDERED: VITAMINC500 PO (15:52)
[2021-04-25] MEDS ORDERED: VITAMIN D325 MC2 PO (15:52)
[2021-04-25] MEDS ORDERED: PROTONIX 20 MG20 MG PO (15:52)
[2021-04-25] MEDS ORDERED: MIRALAX17 GM PO (15:52)
[2021-04-25] MEDS ORDERED: TYLENOL325 MG PO (15:52)
[2021-04-25] MEDS ORDERED: MAGOX 400400 MG PO (15:52)
[2021-04-25] MEDS ORDERED: ENOXAPARIN40 MG/0.4 SUBQ (16:00)
[2021-04-25] MEDS ORDERED: AUGMENTIN 875-1 EACH PO (16:00)
[2021-04-25 17:30] VITALS: BP 136/71
--- NOTE | 2021-04-25 18:04 | NUR ---
RN ASSUMED PT'S CARE AT 0700-1800PM, PT IS A&OX2 ( PERSON AND PLACE ), PT CAN FOLLOW COMMANDS, BUT PT IS CONFUSED AT TIME, RN HAS REPOTED TO HOSPITAL DR ABOUT PT WAS FALL AT MRI OFFICE, PT'S VS ARE STABLE , PT DENIES ANY PAIN , PT IS CONTINUING COVID ISLATION , RN RECEIVED ORDER TO DC PT TO REHAB UNIT AT 1800PM.
== END 2021-04-25 17:50 | DRG 177 ==
LOC: ER 03:01 → 3W 05:33 → EROBS 05:33 → 3W 09:32
PROVIDERS: Emergency Medicine; Internal Medicine; Nurse Practitioner; ADMIT Hospitalist; ATTEND Hospitalist
DX: U07.1 COVID-19 (principal); J18.9 Pneumonia, unspecified organism; I10 Essential (primary) hypertension; E78.5 Hyperlipidemia, unspecified; E66.9 Obesity, unspecified; D64.9 Anemia, unspecified; R53.81 Other malaise; M19.90 Unspecified osteoarthritis, unspecified site; F03.90 Unspecified dementia, unspecified severity, without behavioral disturbance, psychotic disturbance, mood disturbance, and anxiety; E83.42 Hypomagnesemia; E11.40 Type 2 diabetes mellitus with diabetic neuropathy, unspecified; G70.00 Myasthenia gravis without (acute) exacerbation; Z79.899 Other long term (current) drug therapy; Z28.21 Immunization not carried out because of patient refusal; Z68.35 Body mass index [BMI] 35.0-35.9, adult
CPT/HCPCS: 10879

== ENCOUNTER 2021-04-25 16:25 | Inpatient (IN) | payer OTHER ==
[~2021-04-25] VITALS: Ht 180.3 cm; Wt 108.1 kg
[~2021-04-25 16:25] MED LIST changes: +AUGMENTIN 875-1 EACH PO; +CARVEDILOL25 MG PO; +ENOXAPARIN40 MG/0.4 SUBQ; +FOLIC ACID1 MG PO; +GLIMEPIRIDE4 MG PO; +HYDRALAZINE 2525 MG PO; +LOSARTAN POTAS100 MG PO; +MAGOX 400400 MG PO; +MIRALAX17 GM PO; +PROTONIX 20 MG20 MG PO; +ROSUVASTATIN CAL5 MG PO; +SPIRONOLACTONE25 MG PO; +TYLENOL325 MG PO; +VITAMIN B-12500 MCG PO; +VITAMIN D325 MC2 PO; +VITAMINC500 PO; +ZINC SULFATE50 MG PO
--- NOTE | 2021-04-25 18:52 | NUR ---
PT ADMITTED TO REHAB , PT IS A&OX2 ( PERSON AND PLACE), PT CAN FOLLOW COMMANDS, PT IS CONFUSED AT TIME, PT IS FALL AT MRI OFFICE TODAY, NO INJURY , PT DENIES PAIN AT THIS TIME, PT IS ON BED ALARM,
[2021-04-25 18:58] VITALS: BP 133/73
[2021-04-25 20:41] VITALS: BP 156/64
[2021-04-25 20:42] VITALS: BP 156/64
[2021-04-26 05:29] LABS: HEMATOCRIT 31.7 % (42.0-52.0); HEMOGLOBIN 10.9 gm/dL (14.0-18.0); MCH 30.3 pg (26.0-34.0); MCHC 34.4 g/dL (28.0-37.0); MCV 87.9 fL (80.0-100.0); RBC 3.61 mil/uL (4.50-6.00); RDW 14.2 % (10.5-14.5); WBC 4.4 thou/uL (4.0-11.0)
[2021-04-26 05:47] LABS: CALCIUM 8.5 mg/dL (8.5-10.1); CREATININE 1.1 mg/dL (0.7-1.3); POTASSIUM 4.5 mmol/L (3.5-5.1)
--- NOTE | 2021-04-26 05:50 | NUR ---
Patient maiking slow progress towards outcome goals. Drowsy wakes up with verbal commands. Taking oral medications and regular liquids without difficulty. Enhanced precautions for COVID, low grade temp 99.6 on oral antibiotics. HIgh fall risk, recen fall. Fall recautions in place.
[2021-04-26 05:55] VITALS: BP 151/66
[2021-04-26 08:31] VITALS: BP 167/76
[2021-04-26 11:53] VITALS: BP 174/83
[2021-04-26 16:47] VITALS: BP 130/57
--- NOTE | 2021-04-26 19:48 | NUR ---
RN ASSUMED PT'S CARE AT 0700-1900PM, PT IS A&OX2 ( PERSON AND PLACE), PT IS CONFUSED AT TIME, PT'S VS ARE STABLE , PT IS CONTINUING TREAT COVID MEDICATIONS, PT WAS FALL YESTODAY, PT GETS UP TO CHAIR WITH ASSIST .
[2021-04-26 20:45] VITALS: BP 123/59
--- NOTE | 2021-04-26 22:43 | NUR ---
PT ALERT AND ORIENTED X4 WITH PERIODS OF CONFUSION. VSS AFEBRILE. NO C/O PAIN. UNLABOREDON RA. BED DOWN CALL LIGHT IN REACH.
[2021-04-27 04:56] VITALS: BP 145/68
[2021-04-27 08:06] LABS: GLYCOHEMOGLOBIN (HGB A1C) 6.5 % (4.8-5.6)
[2021-04-27 08:14] VITALS: BP 131/64
--- NOTE | 2021-04-27 08:19 | NUR ---
PT IS CONFUSED . PULLED OFF CLOTHES AND HAD BM ALL OVER BED X2 TODAY. FULL BED AND BATH DONE. VSS AFEBRILE. NO S/S DISTRESSON RA. BED ALARM ON AT ALL TIMES. PROGRESSING SLOWLY TOWARDS D/C GOALS.
[2021-04-27 12:49] LABS: DIRECT BILIRUBIN 0.2 mg/dL (<0.1-0.2); TOTAL BILIRUBIN 0.7 mg/dL (0.2-1.0); TOTAL PROTEIN 6.7 g/dL (6.4-8.2)
[2021-04-27 13:26] VITALS: BP 131/64
[2021-04-27 16:55] VITALS: BP 135/60
[2021-04-27 19:38] VITALS: BP 139/73
--- NOTE | 2021-04-27 19:38 | NUR ---
PT ALERT AND ORIENTED X 2, PT CONFUSED WHEN GIVEN VERBAL ORDERS. PT ON RA, LUNGS DIMINISHED. PT SAT IN CHAIR X 2 TODAY. PT DENIES PAIN. PT DENIES NEEDS AT THE MOMENT, WILL CONTINUE TO MONITOR.
[2021-04-28 04:30] VITALS: BP 152/74
--- NOTE | 2021-04-28 05:58 | NUR ---
Patient progressing towards outcome goals. Oxygenation optimal on room air. Intermittently drowsy but appropriate when awakend. Getting stronger, up to BSC x 1, Incontinent of urine, external male catheter placed for tonight, fair urine output. Denies pain. Vital signs stable.
--- NOTE | 2021-04-28 07:24 | HC ---
[facility] [place] [address] CONSULTATION Name: KARINA LOPEZ Room #: 354-P [facility] IN M.R.#: [id number] Admission: 04/25/21 Attend Phys: Marcos Babb MD Discharge: Date of : 47 Report #: [id number] THIS REPORT FOR: cc: Marcos Linares David J. DO Barry, Joseph W. MD ~ DATE OF SERVICE: 04/27/2021 INFECTIOUS DISEASE CONSULTATION ATTENDING PHYSICIAN: Dr. Babb. REASON FOR EVALUATION: COVID-19 infection. HISTORY OF PRESENT ILLNESS: Chart reviewed. The patient examined. This is a 76-year-old gentleman with known history of diabetes mellitus type 2, hypertension, who reported to the Emergency Room on , had about a week history of intermittent dizziness, generalized weakness. He had apparently had near syncopal episodes as well, maybe had some ground level falls. He apparently denies any nausea, emesis. He was evaluated after being hospitalized by Neurology, underwent imaging studies, which were nondiagnostic. Initial screening for COVID-19 was on 04/23, was found to be positive. He has not complained of any dyspnea. This prompted chest x-ray which showed possible patchy pneumonitis; however, followup film on the 04/24/2021 showed no acute process. He has not required supplemental oxygen at this point. He was initiated on therapy with Augmentin. He has received vitamins, although has not been initiated on steroids. Currently, he is sitting in a chair. He is somewhat encephalopathic, apparently had a diarrheal stool. Denies abdominal pain. He denies any particular dyspnea or cough. He is not aware of any fevers. He has had some anorexia, although he denies any loss of taste or smell. ALLERGIES: None known. MEDICATIONS: Include cholecalciferol, ascorbic acid, folic acid, cyanocobalamin, magnesium oxide, zinc sulfate, spironolactone, atorvastatin, glimepiride, pantoprazole, enoxaparin, Augmentin, carvedilol. PAST MEDICAL HISTORY: As described above, diabetes mellitus, history of hypertension, history of rheumatic fever. Previous tonsillectomy. SOCIAL HISTORY: Former smoker. No illicit drug use. No ethanol. FAMILY HISTORY: Noncontributory. REVIEW OF SYSTEMS: Otherwise, unremarkable. [address] [address] CONSULTATION Name: KARINA LOPEZ Room #: 354-P [facility] IN M.R.#: [id number] Admission: 04/25/21 Attend Phys: Marcos Babb MD Discharge: Date of : 47 Report #: [id number] PHYSICAL EXAMINATION: GENERAL: He appears somewhat chronically ill and undernourished. He has a diminished affect. He is not in overtly distress. Mildly encephalopathic. VITAL SIGNS: Temperature 97.8, pulse 66, respirations 24, blood pressure 131/64. SKIN: Warm, dry, no rashes. HEENT: Normocephalic. Extraocular muscles intact. NECK: Supple. LUNGS: Some basilar crackles. HEART: Regular. I do not appreciate any murmur. ABDOMEN: In seated position is somewhat distended, firm, nontender. EXTREMITIES: Without cyanosis. GENITOURINARY AND RECTAL: Deferred. LABORATORY DATA: Hemoglobin A1c of 6.5. Blood cultures sterile thus far. Electrolytes: Sodium 132, potassium 4.5, chloride 97, bicarbonate is 24, anion gap of 11, BUN and creatinine 18 and 1.1. CBC: White count 4.4, H and H 10.9 and 31.7, platelets of 125. MRI of the head showed moderate diffuse cerebral atrophy and associated small vessel ischemic change, no acute intracranial process. ASSESSMENT AND PLAN: COVID-19 infection without clear evidence of clinical organ dysfunction. There is a million ways COVID-19 can affect folks, though cannot entirely exclude issue ____ see how he does clinically over the next 24-48 hours. In the event of any lack of resolution, would consider adding remdesivir, corticosteroids. Continue Augmentin that certainly could explain GI related complaints like diarrhea as well. At this point, there is no evidence of focal pyogenic infection. In the event of persistent abdominal related complaints, could image his abdomen and pelvis. We will add incentive spirometry. <ELECTRONICALLY SIGNED> By: Jules Jackson MD 04/28/2124 0758 3 Jules Jackson MD /nt
[2021-04-28 07:56] VITALS: BP 142/64
--- NOTE | 2021-04-28 09:23 | NUR ---
INITIAL REHAB ASSESSMENT: Pt was admitted to on 04/25/2021. Pt will remain on 3W in Enhanced Isolation due to COVID. Pt was orignially admitted from home due to weakness and falls. Neuro consulted. Pt did have positive COVID test on 04/24/2021. Pt has received the [employer] COVID vaccination. Pt lives at home with his . Prior to admission, pt was independent with ADLs. Pt has a cane and walker to use at home if needed. There is 1 step to enter their home. No steps inside. Pt's is also currently hospitalized at [facility] due to COVID. Plan at this time is for pt and to both discharge home with HH when medically stable. SW has discussed potential SNF with pt's if needed prior to returning home. Pt's PCP is Dr. Marcos Linares. Rehab CM is following to assist as needed with discharge planning.
[2021-04-28 16:53] VITALS: BP 138/67
--- NOTE | 2021-04-28 19:48 | NUR ---
RN ASSUMED PT'S CARE AT 0700-1900PM, PT IS A&OX2 ( PERSON AND PLACE), PT IS CONFUSED AT TIME, PT IS WORKING WITH PT/OT MORE THEN 2HR, PT GETS UP TO CHAIR WITH ASSIST. PT'S VS ARE STABLE AT DAY SHIFT.
[2021-04-28 19:50] VITALS: BP 133/6; BP 133/66
--- NOTE | 2021-04-29 02:05 | NUR ---
PT ALERT AND ORIENTED X4 VSS AFEBRILE. UNLABORED ON RA. NO C/O PAIN. NO S/S DITRESS. BED ALARM IS ON. ENCOURAGED PT TO TC&DB AND TURN Q 2 HRS. BED DOWN. CALL LIGHT IN REACH. BED ALARM IS ON.
[2021-04-29 04:07] VITALS: BP 150/86
--- NOTE | 2021-04-29 07:39 | NUR ---
PT PROGRESSING SLOWLY TOWARDS D/C GOALS. VSS AFEBRILE. SATS WNL. BS DIMINISHED THIS AM. UNLABORED. NO C/OPAIN. NO S/S DISTRESS OVERNIGHT.
[2021-04-29 08:12] VITALS: BP 130/65
--- NOTE | 2021-04-29 12:57 | NUR ---
Team meeting, moderate to severe memory and cognition. Will need assist with pills and bills. Low endurance and fatigue easily. Po ABX. Dc 05/09/21 [facility] ( pt, ot ,st and nursing). no dme needs.
[2021-04-29 15:29] VITALS: BP 150/69
[2021-04-29 18:08] VITALS: BP 150/69
--- NOTE | 2021-04-29 18:15 | NUR ---
PT ALERT AND ORIENTED X 4. PT SEEMS UNABLE TO PERFORM CERTAIN COMMANDS, AND REMAINS SLIGHTLY CONFUSED DESPITE ORIENTATION. PT WAS IN CHAIR FOR HALF OF SHIFT, BUT THEN TRANSFERRED BACK TO BED. EDUCATED PT THAT DR WANTED PT TO BE IN CHAIR ALL DAY BUT PT REFUSED. PT DENIES PAIN OR ANY NEEDS, WILL CONTINUE TO MONITOR.
[2021-04-29 19:07] LABS: SYPHILIS AB Non Reactive (Non Reactive)
[2021-04-29 19:28] VITALS: BP 150/71
--- NOTE | 2021-04-29 22:11 | NUR ---
PT RESTING IN BED. BED ALARM PLACED ON. PT DID ATTEMPT TO GET OOB TO USE RESTROOM, WITH OUT CALLING FOR ASSISTANCE. PT NEEDS SIGNIFICANT HELP TO STAND AND REMOVE PANTS FOR URINAL. BLE EDEMA REMAINS. PT DECLINED HS SNACK. REMAINS IN ISOLATION, LUNGS DIMINISHED.
[2021-04-30 05:13] VITALS: BP 161/72
[2021-04-30 06:57] LABS: CALCIUM 8.9 mg/dL (8.5-10.1); POTASSIUM 4.5 mmol/L (3.5-5.1)
[2021-04-30 07:31] VITALS: BP 164/77
--- NOTE | 2021-04-30 15:05 | NUR ---
DESMOND visited with trav via phone call, r/t enhanced isolation for COVID. Cont acute rehab. He agrees with dcp and going home. My got to go home today so i sooner the better for me to go home per trav. Will cont following as needed for dc needs.
[2021-04-30 15:57] VITALS: BP 176/60
--- NOTE | 2021-04-30 18:39 | NUR ---
RN ASSUMED PT'S CARE AT 0700AM, PT IS A&OX2 ( PERSON AND PLACE), PT IS CONFUSED AT TIME, PT HAS WORKED WITH PT/OT, BUT PT REFUSED TO GET UP TO CHAIR, PT DENIES PAIN AND SOB AT DAY SHIFT.
[2021-04-30 20:00] VITALS: BP 156/82
--- NOTE | 2021-04-30 22:24 | NUR ---
PT RESTING IN BED WATCHING TV. COUGH CONTINUES. BLE EDEMA REMAINS. ABD DISTENDED. PT PLEASANT AND CALM. BED ALARM ON. PT DECLINED HS SNACK.
[2021-05-01 03:52] VITALS: BP 152/69
[2021-05-01 07:51] VITALS: BP 157/84
[2021-05-01 20:15] VITALS: BP 148/68
--- NOTE | 2021-05-02 00:54 | NUR ---
UPON SHIFT ASSESSMENT, PT AOX4. PT DENIES PAIN AND SOB WHILE ON ROOM AIR. PT HAS PRN PO APAP Q4HR AVAILABLE. PT WITH INTERMITTENT NON-PRODUCTIVE COUGH. PT TOLERATING PO INTAKE OF FLUIDS AND REGULAR DIET WITHOUT ISSUE. PT WITHOUT NAUSEA OR EMESIS. PT VOIDING PER URINAL, DARK YELLOW URINE OBSERVED. PT WITH INTERMITTENT STRESS INCONTINENCE. PT WITH GENERALIZED TREMORS WITH ACTIVITY/MOVEMENT, TREMORS OBSERVED WITH TRANSFERRING. GENERALIZED WEAKNESS NOTED. PT TRANSFERRING BETWEEN CHAIR AND BED WITH X1 ASSIST, GAIT BELT, AND WALKER. PT RESTING IN BED OTHERWISE. FREQUENT REPOSITIONING ENCOURAGED WHILE IN BED, PT NOTED TO SHIFT SLIGHTLY ON HIS OWN, REFUSING REPOSITIONING ASSISTANCE. SENSATION INTACT, CAPILLARY REFILL LESS THAN 3SEC, PERIPHERAL PULSES PALPABLE IN ALL EXTREMITIES. PT ENCOURAGED TO NOTIFY STAFF FOR ALL NEEDS, CALL LIGHT WITHIN REACH, BED ALARM ON, BED LOCKED IN LOWEST POSITION, FREQUENT MONITORING WILL CONTINUE, PT TO BE MAINTAINED ON ENHANCED PRECAUTIONS FOR COVID-19.
[2021-05-02 04:04] VITALS: BP 159/79
[2021-05-02 07:10] VITALS: BP 154/84
[2021-05-02 12:54] LABS: URINE BILIRUBIN NEGATIVE (Negative); URINE BLOOD NEGATIVE (Negative); URINE CLARITY CLEAR; URINE COLOR YELLOW; URINE GLUCOSE-RANDOM* NEGATIVE (Negative); URINE KETONES NEGATIVE (Negative); URINE LEUKOCYTES-REFLEX NEGATIVE (Negative); URINE NITRITE-REFLEX NEGATIVE (Negative); URINE PROTEIN (DIPSTICK) TRACE (Negative); URINE SPECIFIC GRAVITY 1.015 (1.005-1.035); URINE UROBILINOGEN 0.2 E.U./dl (0.2-1.0)
--- NOTE | 2021-05-02 13:50 | PLAN ---
[facility] [place] [address] REHAB UNIT PLAN OF CARE Name: KARINA LOPEZ Room #: 354-P AD[facility] IN M.R.#: [id number] Admission: 04/25/21 Attend Phys: Marcos Babb MD Discharge: Date of : 47 Report #: [id number] THIS REPORT FOR: cc: Marcos Linares David J. DO Smithson, David G. MD ~ DATE OF SERVICE: 04/28/2021 PROGRESS NOTE/OVERALL PLAN OF CARE HISTORY OF PRESENT ILLNESS: The patient was seen for an acute inpatient rehabilitation visit and overall plan of care. He is in COVID isolation. He is alert, no obvious distress. Temperature 36.5, pulse 60, respirations 25, blood pressure is 142/64. No focal calf swelling. He is off oxygen. Strength is probably 3+/5, although he has definite weakness proximally more than distally and has difficulty trying to sit to stand from lower lying positions. Transfers are currently max assist sit to stand. Once up, he is ambulating 5 feet up to 20 feet with a front-wheeled walker. In occupational therapy, lower body dressing is max assist, upper body dressing is supervision. He does have moderate to severe cognitive deficits with severe memory deficits. ASSESSMENT: 1. Toxic metabolic encephalopathy. 2. Dizziness with falls with possible closed head injury. 3. COVID-19 positive. 4. Myasthenia gravis, workup pending. Neurology has been involved. Their last note indicated that he was improved. There was a question regarding some shuffling and a question regarding possible Parkinson's features, but again it was noted that he was improving. was concerned regarding him gradually losing his memory with the possibility of dementia. 5. Hypertension. 6. Underlying cognitive impairment with likely dementia. 7. Diabetes mellitus type 2. 8. Degenerative arthritis. PLAN: The overall plan of care is based on the pre-admit screen and information garnered from therapy assessments. 1. Estimated length of stay is probably at least 10-14 days. 2. Medical prognosis is reasonably good. 3. Anticipated interventions includes the interdisciplinary acute inpatient rehabilitation program. 4. Anticipated functional outcomes would be for the patient to improve as far as strength, mobility, ADL independence and overall cognition, so that he can hopefully return back home with his . 5. Discharge destination would be back to the house where he lives with his . She is currently hospitalized as well for COVID-19 pneumonia[place] [address] REHAB UNIT PLAN OF CARE Name: KARINA LOPEZ Room #: 354-P [facility] IN [facility]#: [id number] Admission: 04/25/21 Attend Phys: Marcos Babb MD Discharge: Date of : 47 Report #: [id number] doing better with the hopes that she could go directly home. 6. Expected therapy by discipline includes PT, OT and speech 1 hour per day each 5 days a week throughout the duration of the acute inpatient rehabilitation stay. ADDENDUM: The patient's prognosis for significant practical improvement within a reasonable period of time appears good. Given the patient's complex medical condition and risk of further medical complication, rehabilitation services could not be safely provided at the lower level of care such as a longterm facility. <ELECTRONICALLY SIGNED> By: Marcos Babb MD 05/02/21 1350 [id number] Marcos Babb MD /nt
--- NOTE | 2021-05-02 17:25 | NUR ---
PATIENT IS ALERT AND ORIENTED X4 THIS SHIFT. PATIENT HAS DIMINSIHED LUNG SOUNDS. HE IS ON ROOM AIR. PATIENT IS ON ENHANCED PRECAUTIONS. PATIENT IS REHAB STATUS. HIS CARDIAC MONITORING HAS BEEN SINUS RHYTHM THIS SHIFT. PATIENT REPORTS THAT HIS LAST BM ON 05/01/2021. PATIENT USES THE URINAL AND THE TOILET FOR TOILETING. PATIENT IS UP WITH ONE ASSIST, WALKER, AND A GAITBELT. PATIENT HAS NO EDEMA. PATIENT HAS AN IV IN HIS RIGHT FOREARM. IV IS PATENT. PATIENT IS ON ROOM AIR. PATIENT WILL CONTINUE TO BE MONITORED.
[2021-05-02 20:15] VITALS: BP 158/72
--- NOTE | 2021-05-03 04:25 | NUR ---
PT ALERT & ORIENTED X 4. VSS AFEBRILE. PT IS UP WITH X 1 ASSIST AND USES WALKER. PT IS IMPULSIVE AT TIMES AND GETS OUT OF BED WITHOUT PRESSING CALL LIGHT. EDUCATED PT ON USING CALL LIGHT FOR SAFETY MEASURES. PT USES URINAL AT BEDSIDE OR WALKS TO TOILET. WILL CONTINUE TO MONITOR.
[2021-05-03 04:42] LABS: CALCIUM 9.3 mg/dL (8.5-10.1); MAGNESIUM 1.7 mg/dL (1.8-2.4); POTASSIUM 4.7 mmol/L (3.5-5.1)
[2021-05-03 04:52] LABS: ABSOLUTE NEUTROPHILS 4.1 thou/uL (1.4-8.2); BASOPHILS 0.5 % (0.0-2.0); EOSINOPHILS 7.1 % (0.0-3.0); HEMATOCRIT 32.1 % (42.0-52.0); LYMPHOCYTES 18.4 % (24.0-44.0); MCH 29.7 pg (26.0-34.0); MCHC 34.4 g/dL (28.0-37.0); MCV 86.3 fL (80.0-100.0); MONOCYTES 10.1 % (1.0-8.0); PLATELET COUNT 283 thou/uL (150-400); POLYS 63.9 % (36.0-66.0); RBC 3.72 mil/uL (4.50-6.00); RDW 13.8 % (10.5-14.5); WBC 6.5 thou/uL (4.0-11.0)
[2021-05-03 16:37] VITALS: BP 177/71
--- NOTE | 2021-05-03 16:53 | NUR ---
PATIENT IS ALERT AND ORIENTED X3. HE IS ON ENHANCED PRECAUTIONS. PATIENT IS ON ROOM AIR. PATINETS LUNG SOUND ARE DIMINISHED. PATIENT IS ON REHAB STATUS BUT WITH CARDIAC MONITORING AND HAS BEEN SINUS RYTHM THIS SHIFT. PATIENT HAS BEEN TO THE BATHROOM FOUR TIMES THIS SHIFT. PATIENT IS UP WITH ONE ASSIST, GAITBELT, AND A WALKER. PATIENT HAS NO SKIN ISSUES TO REPORT AT THIS TIME. CARINA HAS AN IV IN HIS RIGHT FOREARM THAT IS SALINE LOCKED AND PATENT. PATIENT WILL CONTINUE TO BE MONITORED.
[2021-05-03 19:19] VITALS: BP 130/57
--- NOTE | 2021-05-04 02:00 | NUR ---
PT IS UP WITH X1 ASSIST AND USES WALKER TO VOID IN TOILET OR USES URINAL AT BEDSIDE. VSS AFEBRILE. CURRENTLY ON RA AND CONTINUES TO HAVE NPC. PT C/O OF RIGHT HIP PAIN. ADMINISTERED PAIN MEDS PRN. WILL CONTINUE TO MONITOR.
[2021-05-04 07:50] VITALS: BP 148/64
--- NOTE | 2021-05-04 17:51 | NUR ---
PT WAS UP IN CHAIR ALL DAY. EATTING MOST OF HIS MEALS. VSS AND ON ROOM AIR. URINE OUTPUT IS GOOD. NO OTHER ISSUES OR COMPLAINTS.
[2021-05-04 19:20] VITALS: BP 141/72
--- NOTE | 2021-05-04 21:54 | NUR ---
PT WATCHING TV IN BED. LUNGS DIMINIHSED, COUGH. PT CALLS FOR ASSIST WITH AMBULATION AND URINAL, ONE PERSON GAIT BELT AND WALKER. PRN FOR BACK PAIN PROVIDED, PT REPORTS IT IS FROM THERAPY TODAY. DECLINED HS SNACK. BED ALARM ON.
[2021-05-05 04:30] VITALS: BP 139/64
[2021-05-05 04:54] LABS: HEMOGLOBIN 11.2 gm/dL (14.0-18.0); MCH 29.6 pg (26.0-34.0); MCHC 33.9 g/dL (28.0-37.0); MCV 87.3 fL (80.0-100.0); RBC 3.78 mil/uL (4.50-6.00); RDW 13.6 % (10.5-14.5); WBC 5.6 thou/uL (4.0-11.0)
[2021-05-05 04:56] LABS: CALCIUM 9.5 mg/dL (8.5-10.1); POTASSIUM 4.6 mmol/L (3.5-5.1)
[2021-05-05 07:39] VITALS: BP 140/87
--- NOTE | 2021-05-05 18:42 | NUR ---
PROGRESSING TOWARDS POC GOALS.
[2021-05-05 19:32] VITALS: BP 123/53
--- NOTE | 2021-05-05 22:11 | NUR ---
PT WAS SITTING UP IN CHAIR, STEADY TRANSFER WITH WALKER AND GAIT BELT BACK TO BED AND TO RESTROOM. PT DECLINED HS SNACK. PT FOCUSED ON HAVING BM SINCE TWO DOSES OF MIRALAX. DRY COUGH REMAINS. BED ALARM ON. PT DOES NOT ALWAYS CALL FOR ASSISTANCE WITH AMBULATION.
[2021-05-06 02:13] VITALS: BP 146/74
[2021-05-06 07:34] VITALS: BP 134/81
--- NOTE | 2021-05-06 14:00 | NUR ---
Team meeting, reccomenation: Can come off Covid isolation. Mod to se[place] cognition and memory. Needs assist with pills and bills. Needs [facility]. [facility] ( pt, ot, st, nursing, sw). DC 05/09
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
--- NOTE | 2021-05-06 17:54 | NUR ---
RN ASSUMED PT'S CARE AT 0700AM, PT IS A&OX3 ( PERSON ,PLACE AND TIME), PT 'S VS ARE STABLE, PT DENIES PAIN AND SOB, PT'S WEAKNESS HAS IMPROVED, PT IS OFF COVID ISOLATION TODAY, PT IS MOVING TO 5N 509 NOW, RN HAS NOTIFIED PT'S ABOUT PT TO 509.
[2021-05-06 19:49] VITALS: BP 154/83
--- NOTE | 2021-05-07 02:10 | NUR ---
assumed care approx 1900 evening 05/06. pt transfer from 3W earlier in evening (approx 1800 per day RN). pt alert and oriented x4, pleasant and cooperative. pt voiding per urinal. pt denies complaints. dcd saline lock to left forearm without difficulty. pt appears to be sleeping soundly. bed alarm on and call light in reach. will continue to monitor.
[2021-05-07 07:15] VITALS: BP 137/86
--- NOTE | 2021-05-07 08:56 | NUR ---
PT ASSISTED TO BATHROOM WITH WALKER. PT NEEDED BED RAISED UP TO AMBULATE. PT STEADY ON HIS FEET WITH WALKER. PT LUNGS CLEAR. PT TOOK MEDS WHOLE WITH WATER WITHOUT ANY ISSUES. PT DENIES ANY PAIN.
--- NOTE | 2021-05-07 14:49 | NUR ---
Message left for pt's spouse to contact cm regarding dc planning for this Wednesday to home with [facility].
[2021-05-07 19:34] VITALS: BP 166/76
--- NOTE | 2021-05-08 00:09 | NUR ---
PT ALERT AND ORIENTED X 4. UP IN RECLINER ALL EVENING. TRANSFERRED TO BED AT WITH ASSIST X 1. PT DENIES PAIN OR DISCOMFORT. BED ALARM ON FOR SAFETY. PT APPEARS TO BE SLEEPING ON HOURLY ROUNDS.
[2021-05-08 08:00] VITALS: BP 128/86
[2021-05-08] MEDS ORDERED: METFORMIN HCL500 MG PO (12:20)
--- NOTE | 2021-05-08 13:58 | NUR ---
Cm sent message to [facility] to see if they accept for skilled at dc on 05/09/21. [facility] has accepted and his is being admitted their today from home. Will cont following as needed for dc needs.
--- NOTE | 2021-05-08 15:31 | NUR ---
WOOD TECHNOLOGIST ATTEMPTED TO CONTACT TO PROVIDE EDUCATION RE: NEED FOR ASSISTANCE WITH MANAGING MEDICINE UPON DC, HOWEVER, WOOD TECHNOLOGIST WAS UNABLE TO REACH BY PHONE. RN INFORMED AND WILL EDUCATE FAMILY IF CONTACT IS MADE.
[2021-05-08 20:02] VITALS: BP 127/75
--- NOTE | 2021-05-09 06:14 | NUR ---
05-08-21 CARE TRANSFERRED 1899. PT AAOX4, VSS, RR EVEN AND NONLABORED ON RA, LUNGS CLEAR, HT RR, ABD SOFT HYPERACTIVE. OBSERVED PT REPOSITION SELF FROM LYING TO SITTING WITH EFFORT, SITTING TO STANDING EASILY, PT SHUFFLING GAIT WITH WALKER, GAIT BELT IN PLACE. PT HAD TWO MEDIUM LOOSE STOOL. ASSISTED PT ADJUSTED BED FOR COMFORT.
[2021-05-09 08:00] VITALS: BP 177/78
[2021-05-09] MEDS ORDERED: NOVOLOG100 UNIT/M SUBQ (08:21)
[2021-05-09] MEDS ORDERED: FLOMAX0.4 MG PO (08:21)
[2021-05-09] MEDS ORDERED: LACTULOSE20 GM/30 M PO (08:21)
--- NOTE | 2021-05-09 08:21 | NUR ---
Cm notified that trav is now agreeable to go to [facility] where his is at. Wheelchair transportation set up for 1100. Bedside nurse to call report to [phone].
[2021-05-09 08:34] VITALS: BP 177/78
[2021-05-09] MEDS ORDERED: VITAMIN D250 MCG PO (10:12)
--- NOTE | 2021-05-09 10:16 | NUR ---
PATIENT CARE ASSUMED AT 0700, PATIENT SITTING ON THE CHAIR IN THE ROOM, ALERT AND ORIENTED X3, PATIENT CALM AND PLEASANT WITH CARE, TOOK MEDICATION WHOLE WITH WATER ONE AT A TIME, ACTIVE BOWEL SOUND WITH SOFT AND ROUNDED ABDOMEN, SKIN INTACT, NO EDEMA NOTED, BREATH SOUND CLEAR REG HR, PATIENT AMBULATE WITH A WALKER, ONE ASSIST, FALL PRECAUTION IN PLACE, PATIENT IS BEING DISCHARGE BY 11AM TO A FACILITY.
--- NOTE | 2021-05-09 12:42 | NUR ---
PATIENT DISCHARGED TO [facility] FACILITY, HE WAS PICKED UP BY WHEELCHAIR VAN AT 12:30
== END 2021-05-09 12:30 | DRG 70 ==
LOC: 3W 16:25
PROVIDERS: Nurse Practitioner; Nurse Practitioner Family; Psychiatry & Neurology Neuromuscular Medicine; Specialist; ADMIT Physical Medicine & Rehabilitation; ATTEND Physical Medicine & Rehabilitation
DX: G93.41 Metabolic encephalopathy (principal); U07.1 COVID-19; E43 Unspecified severe protein-calorie malnutrition; G70.00 Myasthenia gravis without (acute) exacerbation; S09.90XA Unspecified injury of head, initial encounter; I10 Essential (primary) hypertension; D64.9 Anemia, unspecified; M19.90 Unspecified osteoarthritis, unspecified site; E11.9 Type 2 diabetes mellitus without complications; W18.39XA Other fall on same level, initial encounter; Z28.21 Immunization not carried out because of patient refusal; Y93.89 Activity, other specified; Y92.89 Other specified places as the place of occurrence of the external cause; Y99.8 Other external cause status; R26.89 Other abnormalities of gait and mobility
CPT/HCPCS: 10112